=== PATIENT | female | born 1985 | race Caucasian/White ===

== ENCOUNTER 2022-09-13 08:08 | Outpatient (CLI) | payer BC, MEDICARE, MEDICAID, SELFPAY ==
--- NOTE | 2022-09-13 08:15 | CRLHL7_ITS ---
For Patients: As a result of the Century Cures Act, medical imaging exams and procedure reports are released immediately into your electronic medical record. You may view this report before your referring provider. If you have questions, please contact your health care provider. INDICATION: Multiple sclerosis follow-up. Left-sided optic neuritis. TECHNIQUE: Brain MRI with contrast, demyelination protocol. The following sequences were obtained: Axial DWI and ADC mapping sequences. Sagittal FLAIR and T1 weighted sequences. Axial FLAIR and T2 weighted sequences. Axial and coronal T1 postcontrast sequences. 15 cc of Dotarem gadolinium based contrast agent administered. COMPARISON: : Brain MRI from 10/20/2019. brain MRI from 09/05/2020. FINDINGS: Multiple T2 hyperintense lesions within the supratentorial and infratentorial brain are re-demonstrated. Supratentorial lesions are located predominantly within the periventricular white matter, with several lesions located in the intermediate deep and juxtacortical white matter as well. Several of the larger lesions exhibit ovoid or curvilinear shape and indistinct margins, characteristic in appearance for demyelinating plaques. The centrally located supratentorial lesions predominantly exhibit a perpendicular orientation to the ventricular system, with many of the lesions arising from the callosal-septal interface. Infratentorial lesions involve the brainstem, brachium pontis and cerebellar hemispheres bilaterally. Overall burden of T2 signal change is [id number] within the supratentorial and infratentorial brain. There is no substantial parenchymal volume loss. There is no atrophy of the corpus callosum. A few of the larger lesions demonstrate T1 hypointense signal. Small enhancing right temporal lesion, series /. No evidence of acute ischemia or intracranial hemorrhage. No hydrocephalus or extra-axial collections. Pituitary gland, parasellar structures and optic chiasm are normal. All the major intracranial vascular structures demonstrate normal flow-related signal voids. No T2 hyperintensity or abnormal enhancement involving the optic nerves. No calvarial or skullbase marrow signal abnormality. No obstructive sinus disease. IMPRESSION: 1. Jnqk-dw-[id number] supratentorial and infratentorial signal changes compatible with chronic demyelinating plaques of multiple sclerosis. 2. Single small enhancing/active demyelinating plaque within the right temporal white matter. 3. No abnormal enhancement or signal abnormality involving the optic nerves on non-dedicated imaging of the orbital region. 4. Mild T1 hypointense lesion load. 5. No significant cerebral volume loss. Dictated by Rishi Roberts MD @ 09/13/2022 2:30:27 PM (Electronically Signed)
--- NOTE | 2022-09-13 09:15 | CRLHL7_ITS ---
For Patients: As a result of the Century Cures Act, medical imaging exams and procedure reports are released immediately into your electronic medical record. You may view this report before your referring provider. If you have questions, please contact your health care provider. INDICATION: Multiple sclerosis. COMPARISON: None. TECHNIQUE: Sagittal T1, T2, and STIR sequences. Axial T2/gradient sequences. Post gadolinium T1 weighted sequences. FINDINGS: Normal vertebral body facet alignment. No fractures. No vertebral body loss of height. No spondylolisthesis. No ligamentous injury. Multilevel patchy T2 and STIR hyperintensity within the cord compatible with demyelinating plaques. No cord atrophy or expansion. No abnormal enhancement to suggest active demyelination. Mild thoracic spondylosis. T7-8: Disc degeneration with no spinal canal neural foraminal narrowing. No spinal canal or neural foraminal narrowing at the remaining levels of the thoracic spine. Normal paraspinal soft tissues. IMPRESSION: 1. Normal alignment. No fractures. 2. Multilevel patchy T2 insert hyperintense was the cord compatible with demyelinating plaques. No cord atrophy or expansion. No abnormal enhancement. 3. Mild thoracic spondylosis. Dictated by Ab Pike MD @ 09/13/2022 12:54:56 PM (Electronically Signed)
--- NOTE | 2022-09-13 10:15 | CRLHL7_ITS ---
For Patients: As a result of the Century Cures Act, medical imaging exams and procedure reports are released immediately into your electronic medical record. You may view this report before your referring provider. If you have questions, please contact your health care provider. INDICATION: Multiple sclerosis. COMPARISON: None available. TECHNIQUE: Sagittal T1, T2, and STIR sequences. Axial T2/gradient sequences. Post gadolinium to weighted sequences. FINDINGS: Normal vertebral body facet alignment. No fractures. No vertebral body loss of height. No spondylolisthesis. No ligamentous injury. No suspicious osseous lesions. Multilevel patchy T2 and STIR hyperintense lesions of the cord most prominent at C2 through C4 compatible with demyelinating plaques. Subtle cord atrophy at C2-3. No abnormal enhancement. C1-2: No spinal canal narrowing. C2-3: No spinal canal neural foraminal narrowing. C3-4: No spinal canal or neural foraminal narrowing. C4-5: Mild disc degeneration. No spinal canal neural foraminal narrowing. C5-6: Mild disc degeneration. No spinal canal neural foraminal narrowing. C6-7: No spinal canal neural foraminal narrowing. C7-T1: No spinal canal neural foraminal narrowing. IMPRESSION: 1. Normal alignment. No fractures. 2. Multilevel patchy T2 and STIR hyperintense lesions of the cord compatible with edema and plaques. Subtle cord atrophy at C2-3. 3. No enhancement. 4. No spinal canal or neural foraminal narrowing at all levels of the cervical spine Dictated by Ab Pike MD @ 09/13/2022 12:49:20 PM (Electronically Signed)
== END 2022-09-13 08:09 | disposition home or self-care (01) ==
PROVIDERS: PCP Internal Medicine; Visit Provider Psychiatry & Neurology Neurology
DX: G35 Multiple sclerosis (principal); M47.894 Other spondylosis, thoracic region; G93.9 Disorder of brain, unspecified; H46.9 Unspecified optic neuritis
CPT/HCPCS: 70553; 72156; 72157; A9575

== ENCOUNTER 2024-12-14 11:41 | Emergency (ER) | payer MEDICARE, MEDICAID, SELFPAY ==
[2024-12-14 11:50] VITALS: BP 109/75; PULSE 93; RESP 16; TEMP 36.8; O2SAT 96; BMI 15.1
--- OUTSIDE RECORDS SUMMARY | 2024-12-15 13:54 | XMS_ITS | Clinical Summary ---
Author Organization [employer] [facility] Address [place], [place] [address] Care Team Providers Care Freelance Designer Name Role Phone Milly Jacobson DO Primary Care Provider [phone] Allergies Active Allergy Reactions Criticality Noted Date Comments Avocado Rash 01/12/2018 Scratchy throat/lip swelling [place] Headache 11/26/2017 migraine Horseradish Rash Medium 11/26/2017 Throat scratchy/lips swelling Sumatriptan Other - Describe In Comment Field 12/08/2014 Sinus swelling Latex Hives 02/17/2012 Levofloxacin Myalgia 01/20/2019 Nickel Hives,Rash 02/17/2012 Unlisted Allergen (Include Detail In Comments) Hives,Throat Swelling/Closing High 11/26/2017 All fruits Pear Anaphylaxis High 06/03/2019 Sulfa (Sulfonamide Antibiotics) Seizures 02/17/2012 Seizure-like Tropical Fruit Flavor Hives,Throat Swelling/Closing High 02/17/2012 Medications miscellaneous medical supply misc Lion's Henrry Mushrooms Dietary Supplement (Hericium erinaceus), 2 tabs daily. 0 019 Active biotin 1 mg capIndications:Mu ltiple sclerosis (HC) Take 1 capsule by mouth. 0 019 Active medication order composer CBD oil as needed 0 019 Active cholecalciferol (VITAMIN D3) 50,000 unit capsule Active Zinc Acetate, Oral, 25 mg (zinc) cap Take by mouth. 0 020 Active EPINEPHrine (EPIPEN 2-EMMA) 0.3 mg/0.3 mL injectionIndicati ons:Anaphylactic reaction, subsequent encounter Inject 0.3 mg intramuscular one time if needed for Allergic Reaction for up to 1 dose. 2 Each 020 Active Shower ChairIndications: Multiple sclerosis (HC) For home use. Has MS with vision loss 1 Each 022 Active albuterol HFA (PRO-AIR; VENTOLIN; PROVENTIL) 90 mcg/actuation inhalerIndication s:SOB (shortness of breath) Inhale 1-2 Puffs by mouth every 4 hours if needed for Shortness Of Breath. 1 Each 022 Active tiZANidine (ZANAFLEX) 2 mg tabletIndications :Muscle cramps TAKE ONE TABLET BY MOUTH TWICE A DAY NEEDED FOR MUSCLE CRAMPS 60 Tablet 12 024 Active pregabalin (LYRICA) 200 mg capsuleIndication s:Multiple sclerosis (HC) Take 1 Capsule (200 mg) by mouth two times daily. 180 Capsule 1 024 Active levETIRAcetam (KEPPRA) 750 mg tabletIndications :Grand mal seizure disorder (HC) Take 1 Tablet (750 mg) by mouth two times daily. 024 Active pyridoxine, vitamin B6, (Vitamin B-6) 100 mg tabletIndications :Grand mal seizure disorder (HC) Take by mouth once daily. 024 Active multivit with iron,minerals (MULTIVITAMIN AND MINERALS ORAL) Take by mouth. Active Diaper,Brief, Adult,DisposableI ndications:Multip le sclerosis (HC),Neurogenic bladder Size small Depends overnights. For home use. Diagnosis: neurogenic bladder, multiple sclerosis 150 Each 12 024 Active LORazepam (ATIVAN) 0.5 mg tabIndications:An xiety TAKE ONE TABLET BY MOUTH EVERY 6 HOURS NEEDED FOR ANXIETY 15 Tablet 025 Active oxyCODONE-acetami nophen (PERCOCET) 5-325 mg per tabletIndications :Controlled substance agreement signed,Multiple sclerosis (HC),Degeneration of intervertebral disc of lumbar region, unspecified whether pain present Take 1 Tablet by mouth 2 times daily if needed for Pain. MAXIMUM 4000MG ACETAMINOPHEN PER 24 HOURS. 60 Tablet 025 Active oxyCODONE-acetami nophen (PERCOCET) 5-325 mg per tabletIndications :Controlled substance agreement signed,Multiple sclerosis (HC),Degeneration of intervertebral disc of lumbar region, unspecified whether pain present Take 1 Tablet by mouth 2 times daily if needed for Pain. MAXIMUM 4000MG ACETAMINOPHEN PER 24 HOURS. 60 Tablet 024 2024 Discontinued(R eorder (E-cancel not sent)) LORazepam (ATIVAN) 0.5 mg tabIndications:An xiety TAKE ONE TABLET BY MOUTH EVERY 6 HOURS NEEDED FOR ANXIETY 15 Tablet 024 2024 Discontinued Active Problems Problem Noted Date Diagnosed Date Severe episode of recurrent major depressive disorder, without psychotic features 12/27/2021 COVID-19 vaccination contraindicated 12/27/2021 Left ovarian cyst 08/30/2019 Controlled substance agreement signed 02/23/2018 Overview (02/07/2020): 03/03/19 patient had THC in her urine testing. She brought in what she has been taking. The combination of taking the CBD tincture and CBD capsule for sleep can cause the mild elevation. She will repeat testing in the near future. Repeat on 01/19/20 was good. She is working on slowly weaning down on use of percocet per patient choice. Willing to go slowly. Currently taking percocet 5-325 twice daily as needed. #60 per month. DDD (degenerative disc disease), lumbar 05/09/20 17 Cold sore 07/09/2013 GERD (gastroesophageal reflux disease) 2 Migraine, unspecified, witho ut mention of intractable migraine without mention of status migrainosus 02/18/2012 Major depression, recurrent 02/18/2012 Fall 02/18/2012 Peripheral neuropathy 02/17/2012 Grand mal seizure disorder 02/17/2012 UTI (lower urinary tract infection) 02/17/2012 Urinary retention 02/17/2012 Multiple sclerosis 07/29/2008 Overview (08/19/2018): Avoid fluoroquinolones when possible. TMJ disorder 07/29/2008 Sensorineural hearing loss, bilateral 07/29/2008 Subjective tinnitus 07/29/2008 Resolved Problems Problem Noted Date Diagnosed Date Resolved Date Grand mal seizure disorder 02/18/2012 0 07/29/2012 Peripheral neuropathy 02/18/20122013 Encounters Date Type Department Care Team Description 12/15/2024 Refill [facility] [address] [facility] [place] [place] [address] Milly Jacobson, DO Refill Request (Pregabalin) 12/14/2024 11:15 AM SPRING COILING MACHINE SETTER - 12/14/2024 11:16 AM SPRING COILING MACHINE SETTER Emergency [facility] [address] [facility] [place] [address] Discharge Disposition: Against Medical Advice or Discontinued Care 12/14/2024 10:05 AM SPRING COILING MACHINE SETTER Telemedicine [facility] [address] [place] [phone] Jen Morel NP Telehealth (I think I have pneumonia I've been sick since the end of October I've taken several Covid test and have been negative each time so it's not that. My chest hurts my muscles are too weak to have a real productive cough but I can't get a full breath without gurgling/rattling now and I'm coughing up brown mucus when I can cough. I almost called 911 Friday because I wasn't able to breathe but I found my inhaler and have been able to use it since when it gets really bad./No vitals taken -virtual visit./) 12/14/2024 Travel 11/22/2024 Refill [facility] [address] [facility] [place] [place] [address] Milly Jacobson, DO Refill Request (Lorazepam) 10/21/2024 Refill [facility] [address] [facility] [place] [address] Milly Jacobson, DO Refill Request (Lorazepam) 10/18/2024 8:00 AM SPRING COILING MACHINE SETTER Office Visit [facility] [address] [facility] [place] [address] Zurdo Rendon MD Consult (back of left knee, sore, itchy, ongoing for about 2 years. nothing seems to help. can be either blue or red. changes in size.) 10/18/2024 Travel 10/08/2024 10:10 AM SPRING COILING MACHINE SETTER Office Visit [address] [place] [address] Milly Jacobson, DO Medication Management (med refills, needs a written script); Lump (turns blue sometimes, very itchy, behind knee left leg X 3 montoya) 10/08/2024 Medical Messaging [address] [place] [address] Milly Jacobson, DO Something I forgot 10/08/2024 Travel 09/20/[address] [place] [address] Milly Jacobson DO Refill Request (Lorazepam) from Last 3 Months Immunizations Name Administration Dates Next Due Influenza, IIV3 (Age >=3 years) 11/13/2012,09/07,09/11/2007,09/19/2006 Influenza, IIV4 11/19/2018,11/26/2017 Tdap 07/07/2017,01/19/2007 Family History Medical History Relation Name Comments Good Health Brother 7 Good Health Brother 8 Good Health Brother 9 Good Health Brother 10 Good Health Brother 11 Good Health Daughter 2 Heart Disease Father MIx4 stent x 3 Premature CHD (under age 60) Maternal Grandfather age 55, myocardial infarction Other Mother Marfan's Stroke Paternal Grandfather Good Health Sister 2 Good Health Son 2 Relation Name Status Comments Brother 1 Alive Brother 2 Alive Brother 3 Alive Brother 4 Alive Brother 5 Alive Brother 6 Alive Brother 7 Brother 8 Brother 9 Brother 10 Brother 11 Daughter 1 Alive Daughter 2 Father Alive Maternal Grandfather Mother Alive Paternal Grandfather Sister 1 Alive Sister 2 Son 1 Alive Son 2 Social History Tobacco Use Types Packs/Day Years Used Date Smoking Tobacco: Every Day Cigarettes 0.3 26.1 Started: 11/17/1998 Passive Smoke Exposure: Past Smokeless Tobacco: Never Tobacco Cessation:Ready to Q uit: No; Counseling Given: Yes Passive Exposure Comments:grand parents smoked ciggs Alcohol Use Standard Drinks/Week Comments Not Currently 0 (1 standard drink = 0.6 oz pure alcohol) occasionally wine, beer or liquor PHQ-2 Answer Date Recorded PHQ-2 TOTAL SCORE 2 07/09/2024 Financial Resource Strain Answer Date R ecorded Difficulty of Paying Living Expenses Not on file 11/09/2021 Difficulty of Paying Living Expenses Not on file 11/09/2021 Interpersonal Safety Answer Date Record ed Are you being hit, kicked, p ushed or yelled at (see row info)? No 12/14/2024 Interpersonal Safety Abuse 12 - 18 Not on file 12/14/2024 Interpersonal Safety Ambulatory Vulnerability No t on file 12/14/2024 Comments No Sex and Gender Information Value Date Recorded Sex Assigned at Not on file Legal Sex Female 7:06 AM SPRING COILING MACHINE SETTER Gender Identity Not on file Sexual Orientation Not on file Obstetrics History Last Filed Vital Signs Vital Sign Reading Time Taken Comments Blood Pressure 98/78 12/14/2024 10:39 AM SPRING COILING MACHINE SETTER Pulse 93 12/14/2024 10:39 AM SPRING COILING MACHINE SETTER Temperature 37 C (98.6 F) 12/14/2024 10:39 AM SPRING COILING MACHINE SETTER Respiratory Rate 18 12/14/2024 10:39 AM SPRING COILING MACHINE SETTER Oxygen Saturation 99% 12/14/2024 10:39 AM SPRING COILING MACHINE SETTER Inhaled Oxygen Concentration - - Weight 43.1 kg (95 lb) 12/14/2024 10:39 AM SPRING COILING MACHINE SETTER Height 162.6 cm (5' 4) 10/08/2024 10:38 AM SPRING COILING MACHINE SETTER Body Mass Index 16.31 10/08/2024 10:38 AM SPRING COILING MACHINE SETTER Plan of Treatment Upcoming Encounters Date Type Department Care Team (Late st Contact Info) Description 12/22/2024 8:30 AM SPRING COILING MACHINE SETTER Office Visit [address] [phone] Chyna Devi, [place] [address] [place], [place] [phone] 12/22/2024 9:00 AM SPRING COILING MACHINE SETTER Office Visit [address] [phone] Chyna Soria PA [address] [place] [address] 01/10/2025 8:50 AM SPRING COILING MACHINE SETTER Office Visit [facility] [address] [facility] [place] [address] Milly Jacobson, [address] [place], [place] [phone] Health Maintenance Due Date Last Done Comments Pneumococcal series for age 6-49 (1 of 2 - PCV) 2002 Pap test for age 21-65 11/08/2016 3 ([facility]) COVID-19 vaccine series ( - 2023- season) 2024 Influenza for age 9-49 07/18/2024 9, 11/26/2017, 11/13/2012, Additional history exists Depression screening for age 12+ 07/09/2025 07/09/2024, 03/17/2023, 10/27/2020, Additional history exists BMI (ht and wt on same day) for age 18+ 10/08/2025 10/08/2024, 07/17/2023, 03/17/2023, Additional history exists Tetanus booster 07/07/2027 07/07/2017, 01/19/2007 Tdap Completed 07/07/2017, 01/19/2007 HIV for age 15-65 Completed 03/17/2023 Hepatitis C screening for ag e 18-79 Completed 03/17/2023 Procedures Procedure Name Priority Date/Time Associated Diagnosis Comments LC HIV-1/O/2, 4TH GENERATION Routine 03/17/2023 9:27 AM CDT Screening for HIV (human immunodeficiency virus) LC HCV ANTIBODY RFX TO QUANT PCR Routine 03/17/2023 9:27 AM CDT Need for hepatitis C screening test from Last 3 Months or Most Recently Relevant to Health Maintenance Results * LC HCV ANTIBODY RFX TO QUANT PCR (03/17/2023 9:27 AM CDT) HCV Ab Non Reactive Non Reactive 03/19/2023 11:06 PM CDT [facility] ([facility]) Blood BLOOD SPECIMEN / Unknown Venipuncture / Unknown 03/17/2023 9:27 AM CDT 03/17/2023 9:30 AM CDT [facility] ([facility]) - 03/19/2023 11:06 PM CDT Performed at: [address] [place] [id number] Drier And Evaporator Operator: Amado Cook MD, Phone: [phone] Milly Jacobson DO LABORATORY Final Result Performing Organization Address [facility]/ZIP Co de Phone Number [facility] ([facility]) [address] [place] [address] * HIV-1/O/2, 4TH GENERATION (03/17/2023 9:27 AM CDT) [facility] HIV Scr 4th Gen Non Reactive Non Reactive 03/19/2023 12:08 PM CDT [facility] ([facility]) Comment: HIV Negative HIV-1/HIV-2 antibodies and HIV-1 p24 antigen were NOT detected. There is no laboratory evidence of HIV infection. Blood BLOOD SPECIMEN / Unknown Venipuncture / Unknown 03/17/2023 9:27 AM CDT 03/17/2023 9:30 AM CDT [facility] ([facility]) - 03/19/2023 12:08 PM CDT Performed at: [address] [place] [id number] Drier And Evaporator Operator: Amado Cook MD, Phone: [phone] us Milly Jacobson DO LABORATORY Final Result Performing Organization Address [facility]/ZIP Co de Phone Number [facility] ([facility]) [address] [place] [address] from Last 3 Months or Most Recently Relevant to Health Maintenance Additional Health Concerns Infection Onset Date Last Indicated Rule-Out Influenza 12/14/2024 12/14/2024 Insurance MEDICAID [facility] MEDICARE [place] ONLY MEDICAID MEDICARE PART A HB ONLY MEDICARE PART B HB ONLY Member Subscriber Plan / Payer (Ef fective 2007-Present) Name:Kayla Martinez Member ID:[id number] Relation to Subscriber:Self Name:Kayla Martinez Subscriber ID:[id number] Payer ID:Not on file Group ID:Not on file Type:Not on file Address: ATTN: CLAIMS [address] [place] [phone] MEDICARE PART B HB ONLY [facility] MEDICARE PART A HB ONLY MEDICAID Care Teams Freelance Designer Relationship Specialty Start Date End Date Milly Jacobson DO [address] [place] [phone] PCP - General Internal Medicine 06/06/17
== END 2024-12-14 13:43 | disposition left against medical advice (07) ==
LOC: ED 13:41
PROVIDERS: PCP Internal Medicine
DX: Z53.21 Procedure and treatment not carried out due to patient leaving prior to being seen by health care provider (principal)